=== PATIENT | female | born 1995 | race Caucasian/White ===

== ENCOUNTER 2018-12-08 19:46 | Emergency (ER) | payer SELFPAY ==
[2018-12-08 20:46] LABS: URINE PH (Dip) POC 5.5 (5.0-8.5)
[2018-12-08 20:46] LABS: URINE BLOOD (Dip) POC Trace-intact (NEGATIVE); URINE GLUCOSE (Dip) POC Negative (NEGATIVE); URINE KETONES (Dip) POC Trace (NEGATIVE); URINE LEUKOCYTE EST (Dip) POC Trace (NEGATIVE); URINE NITRITE (Dip) POC Negative (NEGATIVE); URINE TOTAL PROTEIN POC Negative (NEGATIVE)
[2018-12-08] MEDS: LIDOCAINE/MYLANTA 40 ML BTL PO (22:08)
[2018-12-08] MEDS: BELLADONNA/PHENOBARBITAL TAB PO (22:08)
== END 2018-12-08 22:13 | disposition home or self-care (01) ==
LOC: FTE 19:46
DX: R10.13 Epigastric pain (principal)
CPT/HCPCS: 81003; 81025; 93005; 99283-25